=== PATIENT | female | born 1990 | race Caucasian/White ===

== ENCOUNTER 2017-04-01 21:43 | Emergency (ER) | payer OTHER ==
[2017-04-01 21:52] VITALS: BP 124/91
[2017-04-01] MEDS ORDERED: Ondansetron 4 MG Tab.DIS PO ONE (22:14)
[2017-04-01] MEDS ORDERED: PARoxetine 20 MG Tab PO ONE (22:14)
--- NOTE | 2017-04-01 22:39 | EDM.PDOCBH ---
ED HPI GENERAL MEDICAL PROBLEM - General Chief Complaint: Behavioral/Psych Stated Complaint: ANXIETY Time Seen by Provider: 04/01/17 22:07 Source of Information: Reports: Patient History Limitations: Reports: No Limitations - History of Present Illness INITIAL COMMENTS - FREE TEXT/NARRATIVE: The patient presents with anxiety symptoms. She is on her way from [place] to [facility]. She accidentally left her paxil and clonopin in [place]. She is having anxiety and nausea. She has not had the paxil for 3 days. She has a history of anxiety. Onset: Gradual Duration: Day(s): (3) Severity: Moderate Improves with: Reports: None Worsens with: Reports: None Context: Reports: Other (She is driving to [place]) - Related Data Allergies Allergy/AdvReac Type Severity Reaction Status Date / Time erythromycin base Allergy Vomiting Verified 04/01/17 21:52 Home Meds: Home Meds ClonazePAM [KlonoPIN] 1 mg PO BID PRN #20 tab 04/01/17 [Rx] PARoxetine HCl [Paxil] 60 mg PO DAILY 04/01/17 [History] PARoxetine HCl [Paxil] 60 mg PO DAILY #45 tablet 04/01/17 [Rx] Past Medical History HEENT History: Reports: Impaired Vision Psychiatric History: Reports: Anxiety, Depression - Past Surgical History Female Surgical History: Reports: Breast Biopsy, D&C Social & Family History - Family History Family Medical History: Noncontributory - Tobacco Use Smoking Status *Q: Current Every Day Smoker Years of Tobacco use: 10 Packs/Tins Daily: 0.2 - Caffeine Use Caffeine Use: Reports: None - Recreational Drug Use Recreational Drug Use: No ED ROS GENERAL - Review of Systems Review Of Systems: See Below Constitutional: Reports: No Symptoms HEENT: Reports: No Symptoms Respiratory: Reports: No Symptoms Cardiovascular: Reports: No Symptoms Endocrine: Reports: No Symptoms GI/Abdominal: Reports: Nausea. Denies: Abdominal Pain : Reports: No Symptoms Musculoskeletal: Reports: No Symptoms Skin: Reports: No Symptoms Neurological: Reports: No Symptoms Psychiatric: Reports: Anxiety ED EXAM, BEHAVIORAL HEALTH - Physical Exam Exam: See Below Exam Limited By: No Limitations General Appearance: Alert, No Apparent Distress Ears: Normal External Exam Nose: Normal Inspection Head: Atraumatic, Normocephalic Neck: Normal Inspection Respiratory/Chest: No Respiratory Distress, Lungs Clear, Normal Breath Sounds Cardiovascular: Regular Rate, Rhythm, No Edema, No Murmur GI/Abdominal: Normal Bowel Sounds, Soft, Non-Tender, No Organomegaly COURSE, BEHAVIORAL HEALTH COMP - Course Vital Signs: Last Vital Signs Temp 97.2 F 04/01/17 21:49 Pulse 79 04/01/17 21:49 Resp 16 04/01/17 21:49 BP 124/91 H 04/01/17 21:49 Pulse Ox 100 04/01/17 21:49 Orders, Labs, Meds: Laboratory Tests 04/01/17 Range/Units 22:22 POC Glucose 93 (70-105) mg/dL Medications Discontinued Medications Generic Name Dose Route Start Last Admin Trade Name Freq PRN Reason Stop Dose Admin Ondansetron HCl 4 mg 04/01/17 22:14 04/01/17 22:23 Zofran Odt PO 04/01/17 22:15 4 mg ONETIME ONE Administration Paroxetine HCl 60 mg 04/01/17 22:14 04/01/17 22:23 Paxil PO 04/01/17 22:15 60 mg ONETIME ONE Administration Re-Assessment/Re-Exam: I ordered a dose of paxil here and I will give her some ativan for tonight and I will refill her prescriptions. Departure - Departure Time of Disposition: 10:40 Disposition: Home, Self-Care 01 Condition: Good Clinical Impression: Anxiety - Discharge Information Prescriptions: ClonazePAM [KlonoPIN] 1 mg PO BID PRN #20 tab PRN Reason: Anxiety PARoxetine HCl [Paxil] 60 mg PO DAILY #45 tablet Forms: ED Department Discharge Additional Instructions: Take the paxil 60mg daily and the klonopin as needed for any anxiety symptoms.
== END 2017-04-01 23:01 | disposition home or self-care (01) ==
LOC: JD.ED 21:43
DX: F41.9 Anxiety disorder, unspecified (principal); F32.9 Major depressive disorder, single episode, unspecified; F17.210 Nicotine dependence, cigarettes, uncomplicated; Z79.899 Other long term (current) drug therapy; Z88.1 Allergy status to other antibiotic agents
CPT/HCPCS: 82962; 99283; A9270